=== PATIENT | female | born 1990 | race Hispanic/Latino ===

== ENCOUNTER 2018-09-28 13:24 | Day surgery (SDC) | payer BC, OTHER ==
[2018-09-28 14:12] VITALS: BP 101/63; TEMP 98.2; BMI 32.6
[2018-09-28] MEDS ORDERED: hydrALAZINE 20 MG/ML VIAL SLOW IVP PRN (14:52)
--- NOTE | 2018-09-28 15:14 | PRG ---
DATE OF SERVICE: 09/28/2018 TIME OF SERVICE: 1450 hours. PRESENTING COMPLAINT: Contractions at 37.5 weeks gestation. HISTORY OF PRESENT ILLNESS: The patient sees Dr. Fran Forbes for this . She is a G4, P3, at 37.5 weeks with EDC of 10/14/2018. She reports contractions since this morning in her back. She denies rupture of membranes. She reports contractions about every 15 minutes. She reports active fetus. 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 No complications. Blood type O negative. Antibody negative. Pap negative. Rubella immune. VDRL nonreactive. Hepatitis B, GC, Chlamydia negative. Group B strep negative on 09/14. PAST MEDICAL HISTORY: None. PAST SURGICAL HISTORY: None. ALLERGIES: DENIES. MEDICATIONS: Amitriptyline, CitraNatal. SOCIAL HISTORY: Denies tobacco, alcohol, or IV drug abuse. FAMILY HISTORY: Noncontributory REVIEW OF SYSTEMS: Noncontributory. PHYSICAL EXAMINATION: GENERAL: female resting comfortably, at 37.5 weeks gestation. VITAL SIGNS: Blood pressure 101/63, pulse 75, respirations 18, temperature 98.2. HEENT: Within normal limits to auscultation bilaterally. HEART: Regular rate and rhythm. ABDOMEN: Soft and nontender. Fundal height 37. FHTs 140s. Positive accelerations. No decelerations noted. Cervical exam by RN was 125 and -2, cephalic. EXTREMITIES: Without clubbing, cyanosis, or edema. Prolonged monitoring was carried out. The patient was noted to have uterine irritability approximately every 5 to 11 minutes. No evidence of active labor. Category I heart rate tracing. No decelerations. IMPRESSION: Prodromal labor. No evidence of active labor at 37 to 38 weeks gestation. PLAN: Discharge home. The patient to keep scheduled followup with Dr. Forbes on 09/29. Job ID: [id number]
== END 2018-09-28 15:03 | disposition home or self-care (01) ==
LOC: L&D/OP 13:24
PROVIDERS: ATTEND Obstetrics & Gynecology
DX: O47.1 False labor at or after 37 completed weeks of gestation (principal); Z3A.37 37 weeks gestation of pregnancy
CPT/HCPCS: 99282

== ENCOUNTER 2018-10-07 05:19 | Inpatient (IN) | payer BC, OTHER ==
--- NOTE | 2018-10-06 18:28 | PDOC.LDHP ---
Labor and Delivery H&P HPI: 27 y/o at 39 weeks presents for term induction of labor. Patient has gestational thrombocytopenia, seen at [facility] but found to be stable thus far with minimal acute fluctuations in platelet count. Current gestational age (weeks): 39 Due date: 10/14/18 Grav: 4 Para: 3 Current complications: other (thrombocytopenia) Current medications: pre- vitamins Previous surgical history: none Allergies/Adverse Reactions: Allergies Allergy/AdvReac Type Severity Reaction Status Date / Time No Known Allergies Allergy Verified 09/28/18 14:12 Social history: none - Physical Exam Vital signs reviewed and normal: yes General: NAD Heart: RRR Lungs: nonlabored breathing Abdomen: gravid Extremeties: no edema FHT: category 1 - Assessment L&D Assessment: medically indicated induction - Plan Plan: admit to L&D, cervical ripening
[~2018-10-07 05:19] MED LIST: Butorphanol Tartrate 1 MG/ML VIAL SLOW IVP PRN; Carboprost 250 MCG/ML AMP IM PRN; Diphenoxylate HCl/Atropine Tablet PO PRN; HYDROcodone/Acetaminophen 5/325 mg Tablet PO PRN; Ibuprofen 800 MG TAB PO PRN; Lidocaine 1% (PF) 30 ML VIAL SC PRN; Methylergonovine 0.2 MG/ML VIAL IM PRN; Misoprostol 200 MCG TAB PR PRN; NS w/ Oxytocin 10 units 500 ML IV SCH; Ondansetron PF 4 MG/2 ML Vial IVP PRN; Promethazine HCl 25 MG/ML VIAL IM PRN; Zolpidem Tartrate 5 MG TAB PO PRN; hydrALAZINE 20 MG/ML VIAL SLOW IVP PRN
[2018-10-07 05:49] VITALS: BMI 33.2
[2018-10-07] MEDS: Lactated Ringer's 1,000 ML IV SCH (06:03)
[2018-10-07 06:16] LABS: Hemoglobin 10.7 g/dL (12.0-16.0); Mean Corpuscular HGB CONC 32.7 g/dL (32.0-36.0); Mean Corpuscular Hemoglobin 25.9 pg (27.0-31.0); Mean Corpuscular Volume 79.1 fL (78.0-98.0); Mean Platelet Volume 13.3 fL (7.4-10.4); Platelet Count 75 thou/uL (130-400); RBC Distribution Width 13.9 % (11.5-14.5); Red Blood Cell (RBC) Count 4.13 mill/uL (4.20-5.40)
[2018-10-07] MEDS: Misoprostol 100 MCG TAB VAG SCH (06:20)
[2018-10-07 06:46] LABS: HBSAg Index 0.31 S/CO (0-0.99); Hep B Surf Ag Non-Reactive S/CO (NonReactive)
[2018-10-07 06:46] LABS: Syphilis Antibody Nonreactive (Nonreactive); Syphilis Antibody Index 0.03 S/CO (<1.00 Non-Reactive)
--- NOTE | 2018-10-07 08:16 | PDOC.EVN ---
Event Note - Event Note Event Note: Platelet count is only 75 this morning. Will inform team of this. Epidural may not be possible, but patient was not planning one.
[2018-10-07] MEDS: NS / Oxytocin 40 units/1000ml 1,000 ML IV PRN ×2 (13:22→15:47)
[2018-10-07] MEDS ORDERED: Zolpidem Tartrate 5 MG TAB PO PRN (16:20)
[2018-10-07] MEDS ORDERED: Preparation H Ointment 28 GM TUBE PR PRN (16:20)
[2018-10-07] MEDS ORDERED: HYDROcodone/Acetaminophen 5/325 mg Tablet PO PRN ×2 (16:20)
[2018-10-07] MEDS ORDERED: Lanolin Ointment 7 GM TUBE TOP PRN (16:20)
[2018-10-07] MEDS ORDERED: Promethazine HCl 25 MG/ML VIAL IM PRN (16:20)
[2018-10-07] MEDS ORDERED: Methylergonovine 0.2 MG/ML VIAL IM PRN (16:20)
[2018-10-07] MEDS ORDERED: Misoprostol 200 MCG TAB VAG PRN (16:20)
[2018-10-07] MEDS ORDERED: Measles/Mumps/Rubella 10 MCG/0.5 ML VIAL SC ONE (16:20)
[2018-10-07] MEDS ORDERED: Milk Of Magnesia 30 ML UDCUP PO PRN (16:20)
[2018-10-07] MEDS ORDERED: Benzocaine-Menthol 82.5 ML CAN TOP PRN (16:20)
[2018-10-07] MEDS ORDERED: diphenhydrAMINE 25 MG CAP PO PRN (16:20)
[2018-10-07] MEDS ORDERED: hydrALAZINE 20 MG/ML VIAL SLOW IVP PRN (16:20)
[2018-10-07] MEDS ORDERED: NS / Oxytocin 40 units/1000ml 1,000 ML IV SCH (16:20)
[2018-10-07] MEDS ORDERED: Varicella virus, LIVE 0.5 ML VIAL SC ONE (16:20)
[2018-10-07] MEDS ORDERED: Bisacodyl 10 MG SUPP PR PRN (16:20)
[2018-10-07] MEDS ORDERED: Adacel (T-DAP) 0.5 ML SYRINGE IM ONE (16:20)
[2018-10-07] MEDS ORDERED: Ondansetron PF 4 MG/2 ML Vial IVP PRN (16:20)
[2018-10-07] MEDS ORDERED: Docusate Calcium (SURFAK) 240 MG CAP PO SCH (16:45)
[2018-10-07] MEDS ORDERED: Ibuprofen 800 MG TAB PO SCH (16:45)
[2018-10-07] MEDS ORDERED: Prenatal Vitamin 1 TAB PO SCH (16:45)
[2018-10-07] MEDS: Ferrous Sulfate 325 MG TAB PO SCH (17:57)
[2018-10-07] MEDS: Docusate Calcium (SURFAK) 240 MG CAP PO SCH (21:00)
[2018-10-07] MEDS: Ibuprofen 800 MG TAB PO SCH (21:00)
[2018-10-08] MEDS: Ibuprofen 800 MG TAB PO SCH ×2 (05:49→14:06)
[2018-10-08 07:27] LABS: Hemoglobin 10.7 g/dL (12.0-16.0)
[2018-10-08] MEDS ORDERED: Prenatal Vitamin 1 TAB PO SCH (09:00)
[2018-10-08] MEDS: Docusate Calcium (SURFAK) 240 MG CAP PO SCH (09:07)
[2018-10-08] MEDS: Ferrous Sulfate 325 MG TAB PO SCH ×2 (09:27→18:19)
[2018-10-08 11:26] VITALS: BP 103/55; TEMP 97.8
[2018-10-08] MEDS: Lactated Ringer's 1,000 ML IV SCH (17:54)
[2018-10-08] MEDS: Misoprostol 100 MCG TAB VAG SCH (17:55)
--- NOTE | 2018-10-08 18:37 | PDOC.PP ---
Post Progress Note Post Day #: 1 PO intake tolerated: yes Flatus: yes Ambulation: yes Vital Signs (12 hours) Temp Pulse Resp BP Pulse Ox 10/08/18 11:25 97.8 F 68 20 103/55 L 98 10/08/18 07:52 97.6 F 60 20 100/56 L 98 10/08/18 07:15 98 Weight Weight 176 lb - Physical Examination General: NAD Cardiovascular: no m/r/g, RRR Respiratory: clear to auscultation bilaterally Extremities: negative homans (B) Neurological: no gross focal deficits Psychiatric: A&Ox3, normal affect (DC to home) Result Diagrams: 10/08/18 07:07 Additional Labs: Post Labs Blood Type O NEGATIVE 10/07/18 06:31 Hep Bs Antigen Non-Reactive S/CO (NonReactive) 10/07/18 06:00
--- NOTE | 2018-10-09 08:15 | DN ---
DATE OF PROCEDURE: 10/07/2018 TIME OF SERVICE: at 1319, [place] Daylight [place] Time. PREOPERATIVE DIAGNOSES: Intrauterine at 39 weeks 0 days with a term medical induction of labor with a history of thrombocytopenia. POSTOPERATIVE DIAGNOSES: Intrauterine at 39 weeks 0 days with a term medical induction of labor with a history of thrombocytopenia. PROCEDURES: Spontaneous vaginal delivery over first-degree laceration. FINDINGS: Viable male , weighing 3742 g or 8 pounds 4 ounces, Apgars of nine and nine. QUANTITATIVE BLOOD LOSS: 150 mL. COMPLICATIONS: None. PROCEDURE IN DETAIL: The patient presented to [facility] where she was admitted to the labor and delivery service. The patient underwent a normal and uneventful labor with normal cervical dilatation until she was found to be completely dilated. She was then allowed to push and was able to bring the baby down and delivered the baby in a vertex presentation without difficulties. Once the head delivered in occiput anterior position, the shoulders followed spontaneously along with the rest of the baby's body. Once out the baby's mouth and nose were bulb suctioned. The cord was clamped and cut and baby was handed to waiting attendants. Cord blood was collected. Gentle fundal massage was performed and the placenta delivered intact without problems. Hemostasis was assured. Quantitative blood loss was calculated. Inspection of the cervix, vaginal vault, and perineum did not reveal any lacerations needing suturing. Once again, hemostasis was within normal limits and the patient was allowed to recover in the labor and delivery room. Baby went to nursery. ADDENDUM: Following delivery of the head, the patient was relatively far back on the bed and the anterior shoulder did not deliver immediately. In the first 20 seconds, we were able to relocate the patient moving her bottom forward to better angle on the bed. We then were able to deliver the anterior shoulder by performing 180 degree corkscrew type maneuver which resulted in rapid and spontaneous delivery of the shoulders and the rest of the baby, although this did seem to indicate a mild shoulder dystocia, baby was delivered well prior to 60 seconds, and I believe the difficulty was mainly by patient's positioning on the bed and initial lack of [place]' positioning as well as a tight perineum which did not result in easy delivery of the shoulders initially. Nonetheless, suprapubic pressure was not necessary and the shoulders were delivered in less than 30 seconds of delivery of the head. Job ID: [id number]
== END 2018-10-08 19:13 | disposition home or self-care (01) | DRG 807 ==
LOC: L&D 05:19 → 3SW 16:38
PROVIDERS: ADMIT Obstetrics & Gynecology; ATTEND Obstetrics & Gynecology
PROC: 10E0XZZ Delivery of Products of Conception, External Approach (ICD-10-PCS; principal; 2018-10-07)
PROC: 0HQ9XZZ Repair Perineum Skin, External Approach (ICD-10-PCS; 2018-10-07)
PROC: 3E033VJ Introduction of Other Hormone into Peripheral Vein, Percutaneous Approach (ICD-10-PCS; 2018-10-07)
DX: O99.12 Other diseases of the blood and blood-forming organs and certain disorders involving the immune mechanism complicating childbirth (principal); Z37.0 Single live birth; O66.0 Obstructed labor due to shoulder dystocia; Z3A.39 39 weeks gestation of pregnancy; O70.0 First degree perineal laceration during delivery; D69.6 Thrombocytopenia, unspecified
CPT/HCPCS: 36415; 85014; 85018; 85027; 86780; 86850; 86870; 86900; 86901; 87340; J2001; J2210; J2590